=== PATIENT | male | born 1960 | race African-American/Black ===

== ENCOUNTER 2023-12-09 12:43 | Emergency (ER) | payer OTHER ==
[2023-12-09 13:27] LABS: #Monocytes 0.7 thou/uL (0.11-0.59); %Basophils 0.5 % (0.0-1.0); %Eosinophils 0.6 % (0.0-10.0); %Lymphocytes 24.3 % (21.0-51.0); %Monocytes 10.5 % (0.0-10.0); %Neutrophils 63.9 % (42.0-75.0); Hematocrit 40.9 % (42.0-52.0); Hemoglobin 14.3 g/dL (14.0-18.0); Mean Corpuscular Hemoglobin 32.4 pg (27.0-31.0); Mean Corpuscular Volume 92.7 fl (78.0-98.0); Mean Platelet Volume 11.2 fL (7.4-10.4); Platelet Count 174 10x3/uL (130-400); Red Blood Cell (RBC) Count 4.41 mill/uL (4.70-6.10); White Blood Cell (WBC) Count 6.3 10x3/uL (4.8-10.8)
[2023-12-09 13:56] LABS: ALT (SGPT) 11 U/L (8-55); AST (SGOT) 26 U/L (5-34); Albumin 4.4 g/dL (3.4-4.8); Alkaline Phosphatase 70 U/L (40-110); Anion Gap 15 mmol/L (10-20); BUN (Urea Nitrogen) 12 mg/dL (8.4-25.7); Bilirubin, Total 0.3 mg/dL (0.2-1.2); Calc. Creatinine Clearance 0 mL/min (70-130); Calcium 9.5 mg/dL (7.8-10.44); Carbon Dioxide 24 mmol/L (23-31); Chloride 105 mmol/L (98-107); Estimated GFR 86; Globulin 3.6 g/dL (2.4-3.5); Glucose 130 mg/dL (80-115); Potassium 3.9 mmol/L (3.5-5.1); Sodium 140 mmol/L (136-145)
[2023-12-09 13:59] LABS: Troponin I Less than 0.010 ng/mL (< 0.028)
[2023-12-09] MEDS ORDERED: HYDROcodone/Acetaminophen 5/325 mg Tablet ONE (15:34)
== END 2023-12-09 15:38 ==
LOC: ERS 12:43
DX: R55 Syncope and collapse (principal); I10 Essential (primary) hypertension; E11.40 Type 2 diabetes mellitus with diabetic neuropathy, unspecified
CPT/HCPCS: 36415; 70450; 71045; 72125; 80053; 84484; 85025; 93005